=== PATIENT | male | born 1980 | race Caucasian/White ===

== ENCOUNTER 2019-07-16 09:51 | Inpatient (IN) | payer MEDICAID ==
[~2019-07-16] VITALS: Ht 167.6 cm; Wt 77.1 kg
[2019-07-16 09:52] VITALS: BP 118/67
--- NOTE | 2019-07-16 10:00 | NUR ---
PT TO ER BED 6
[2019-07-16] MEDS ORDERED: ONDANSETRON 4 MG/2 ML VIAL IVP ONE (10:10)
[2019-07-16] MEDS ORDERED: MORPHINE SULFATE 4 MG/ML SYR IVP ONE ×2 (10:10→11:00)
[2019-07-16] MEDS ORDERED: NACL 0.9% 1,000 ML IV ONE ×2 (10:10→12:35)
--- NOTE | 2019-07-16 10:22 | NUR ---
PT TO ED WITH C/O LOWER ABD PAIN X 1 DAY. PT REPORTS EPISODES OF BLOOD TINGED VOMIT. PT NOTED TO BE GAURDING LOWER ABD. ABD IS FLAT, TENDER. NO REBOUND TENDERNESS. BOWEL SOUNDS ACTIVE, NO OBVIOUS DISTENTION NOTED. PT PLACED INTO BED FOR MD WHITESIDE.
--- NOTE | 2019-07-16 10:23 | NUR ---
Patient taken to CT via gurney. Warm blanket provided prior to transfer.
[2019-07-16 10:27] LABS: BASOPHILS # (AUTO) 0.2 K/uL (0.00-0.22); BASOPHILS % (AUTO) 1.1 % (0.0-2.0); EOSINOPHILS # (AUTO) 0.1 K/uL (0-0.4); EOSINOPHILS % (AUTO) 0.5 % (0.0-4.0); HEMATOCRIT 48.1 % (36-52); HEMOGLOBIN 17.2 g/dL (12.0-18.0); LYMPHOCYTES # (AUTO) 2.9 K/uL (2.0-11.5); MEAN CORPUSCULAR HEMOGLOBIN 33 pg (27-31); MEAN CORPUSCULAR HGB CONC 36 g/dL (33-37); MEAN CORPUSCULAR VOLUME 91.4 fL (80-94); MONOCYTES # (AUTO) 0.3 K/uL (0.8-1.0); PLATELET COUNT (AUTO) 273 K/uL (140-450); RED BLOOD CELL COUNT(AUTO) 5.27 MIL/uL (4.20-6.10); RED CELL DISTRIBUTION WIDTH 12.6 % (11.6-13.7); WHITE BLOOD COUNT (AUTO) 17.4 K/uL (4.8-10.8)
[2019-07-16 10:35] LABS: APPEARANCE,URINE CLEAR (CLEAR); BILIRUBIN,URINE NEGATIVE (NEGATIVE); BLOOD, URINE NEGATIVE (NEGATIVE); COLOR,URINE YELLOW (YELLOW); LEUKOCYTE ESTERASE ,URINE NEGATIVE (NEGATIVE); NITRITE, URINE NEGATIVE (NEGATIVE); PH,URINE 8.5 (5.0-9.0); UGLUCOSE NEGATIVE (NEGATIVE)
[2019-07-16] MEDS ORDERED: PIPERACILLIN/TAZOBACTAM 3.375 GM in DEXTROSE 5% 50 ML IV ONE (10:35)
[2019-07-16] MEDS ORDERED: PIPERACILLIN/TAZOBACTAM 3.375 GM VIAL IV ONE (10:36)
--- NOTE | 2019-07-16 10:37 | NUR ---
Patient returned from CT and placed back into bed 6.
[2019-07-16 10:39] LABS: BARBITURATE, URINE NEG. ng/ml (NEG <=200); BENZODIAZEPINE, URINE NEG. ng/mL (NEG <=200); CANNABINOID, URINE POS. ng/mL (NEG <=50); COCAINE, URINE POS. ng/mL (NEG <=300); OPIATE, URINE NEG. ng/mL (NEG <=2000); PHENCYCLIDINE SCREEN,URINE NEG. ng/mL (NEG <=25)
[2019-07-16 10:40] LABS: ALBUMIN 4.7 g/dL (3.4-5.0); CREATININE 1.1 mg/dL (0.7-1.3); TOTAL BILIRUBIN 0.7 mg/dL (0.0-1.0)
[2019-07-16 10:44] LABS: ANION GAP 17.8 (8-16); CARBON DIOXIDE 25.1 mmol/L (21-32); POTASSIUM 3.9 mmol/L (3.5-5.1)
--- NOTE | 2019-07-16 10:46 | NUR ---
Lab at bedside.
[2019-07-16 10:49] LABS: RBC,URINE NONE SEEN /HPF (0-5); WBC,URINE 0-5 /HPF (0-5)
[2019-07-16 10:59] LABS: LYMPHOCYTES % (AUTO) 16.7 % (20.5-51.1); NEUTROPHILS % (AUTO) 80.1 % (42.2-75.2)
[2019-07-16 11:00] LABS: MONOCYTES % (AUTO) 1.6 % (1.7-9.3)
--- NOTE | 2019-07-16 11:13 | NUR ---
MEDICATED ORDERED FOR PAIN. WILL CONTINUE TO ASSESS. VS REMAIN STABLE.
[2019-07-16] MEDS ORDERED: ONDANSETRON 4 MG/2 ML VIAL IM/IVP PRN (12:25)
[2019-07-16] MEDS ORDERED: LORazepam 2 MG/ML VIAL IM/IVP PRN (12:25)
[2019-07-16] MEDS ORDERED: DOCUSATE SODIUM 100 MG GELCAP PO PRN (12:25)
[2019-07-16] MEDS ORDERED: ACETAMINOPHEN 325 MG TAB PO PRN (12:25)
--- NOTE | 2019-07-16 12:45 | NUR ---
Patient will be admitted to care of DR HUYNH. Admited to MED SURG. Will go to room 119-A. Belongings list completed. Report to VIKTORIYA.
[2019-07-16 12:55] VITALS: BP 155/98
--- NOTE | 2019-07-16 12:55 | NUR ---
RECEIVED PT FROM ER. PT ARRIVED FROM ER VIA WHEELCHAIR. ABLE TO AMBULATE TO [facility] BED WITH STEADY GAIT. PAIN WITHIN TOLERABLE AT THIS TIME. AAO X4. SKIN INTACT. IV LEFT AC 20G INTACT ON SALINE LOCK. EVEN UNLABORED RESPIRATIONS ON ROOM AIR. ORIENTED PT TO ROOM AND CALL LIGHT. CALL LIGHT WITHIN REACH. SAFETY MEASURES IN PLACE. WILL CONTINUE TO MONITOR.
[2019-07-16 13:02] LABS: BARBITURATE, URINE NEG. ng/ml (NEG <=200); BENZODIAZEPINE, URINE NEG. ng/mL (NEG <=200); CANNABINOID, URINE POS. ng/mL (NEG <=50); COCAINE, URINE POS. ng/mL (NEG <=300); OPIATE, URINE NEG. ng/mL (NEG <=2000); PHENCYCLIDINE SCREEN,URINE NEG. ng/mL (NEG <=25)
[2019-07-16 13:06] LABS: PROTHROMBIN TIME 9.6 secs (10.8-13.4)
[2019-07-16 13:11] LABS: MAGNESIUM 2.1 mg/dL (1.8-2.4); PHOSPHORUS 2.5 mg/dL (2.5-4.9); THYROID STIMULATING HORMONE 0.64 uIU/mL (0.34-3.74)
[2019-07-16] MEDS: KETOROLAC 15 MG/ML VIAL IVP PRN ×2 (14:39→20:36)
[2019-07-16] MEDS: DEXT 5% /NACL 0.9% 1,000 ML IV SCH (14:42)
--- NOTE | 2019-07-16 14:43 | NUR ---
PATIENT COMPLAINS OF PAIN. TORADOL GIVEN AT THIS TIME. HIDA SCAN SCHEDULED AT 1600 PER NM TECH RUKHSANA. WILL KEEP NPO AND NOT GIVE OPIODS UNTIL THEN. 1L BOLUS NS NOT GIVEN IT WAS ER MD ORDER. WILL CONTINUE TO MONITOR.
--- NOTE | 2019-07-16 17:00 | NUR ---
NM TECH AT BEDSIDE TO TAKE PATIENT FOR NM HIDA SCAN OF GALLBLADDER. WILL CONTINUE TO MONITOR.
[2019-07-16] MEDS ORDERED: MORPHINE SULFATE 2 MG/ML SYR ONE (18:06)
--- NOTE | 2019-07-16 18:15 | NUR ---
MORPHINE ADMINISTERED FOR HIDA PROCEDURE PER ORDER. PATIENT TOLERATED WELL.
[2019-07-16] MEDS ORDERED: MORPHINE SULFATE 2 MG/ML SYR IVP SCH (18:30)
--- NOTE | 2019-07-16 18:48 | NUR ---
PATIENT BACK FROM HIDA SCAN. NO DISTRESS NOTED. DINNER TRAY IN FRONT. WILL CONTINUE TO MONITOR.
--- NOTE | 2019-07-16 19:16 | NUR ---
GAVE REPORT TO NIGHT NURSE FOR CONTINUITY OF CARE. PATIENT IN STABLE CONDITION
--- NOTE | 2019-07-16 19:17 | NUR ---
RECEIVED BEDSIDE REPORT FROM FROM DAY SHIFT NURSETRIPP. AAOX4, PT ABLE TO AMBULATE. DENIES PAIN AT THIS TIME. NO S/S OF SOB ON ROOM AIR. SKIN INTACT, WARM AND DRY TO TOUCH. IV LEFT AC 20G INTACT, PATENT, AND ASYMPTOMATIC. BOARD UPDATED, POC DISCUSSED WITH PT. PT VERBALIZED UNDERSTANDING. BED IN LOW POSITION, CALL LIGHT WITHIN REACH. SAFETY MEASURES IN PLACE. WILL CONTINUE TO MONITOR.
--- NOTE | 2019-07-16 20:36 | NUR ---
PT C/O ABD PAIN. GIVEN TORADOL MD ORDERED. PT TOLERATED WELL.
--- NOTE | 2019-07-16 22:35 | NUR ---
PT SLEEPING IN BED. NO ACUTE DISTRESS NOTED. BED IN LOW POSITION, CALL LIGHT WITHIN REACH.
[2019-07-17] VITALS: BP 136/83
--- NOTE | 2019-07-17 00:10 | NUR ---
VS CHECKED, WITHIN PT'S BASELINE. WILL CONTINUE TO MONITOR.
[2019-07-17] MEDS: DEXT 5% /NACL 0.9% 1,000 ML IV SCH ×2 (00:52→13:37)
--- NOTE | 2019-07-17 03:00 | NUR ---
PT SLEEPING IN BED. NO ACUTE DISTRESS NOTED.
[2019-07-17] MEDS ORDERED: metroNIDAZOLE 500 MG/NS PREMIX 100 ML IV SCH ×2 (05:30→13:00)
--- NOTE | 2019-07-17 05:30 | NUR ---
WBC 17.1 NOTED BUT NO ANTIBIOTIC FOR PT. NOTIFIED TO DR. TAVERA. WILL ORDER ANTIBIOTIC.
[2019-07-17] MEDS ORDERED: cefTRIAXone 1,000 MG VIAL ONE (05:45)
--- NOTE | 2019-07-17 05:51 | NUR ---
GIVEN ROCEPHIN MD ORDERED. PT TOLERATED WELL.
--- NOTE | 2019-07-17 06:28 | NUR ---
PT SLEEPING IN BED. NO ACUTE DISTRESS NOTED. GIVEN FLAGYL MD ORDERED. PT TOLERATED WELL.
[2019-07-17 06:33] LABS: ANION GAP 11.9 (8-16); BASOPHILS % (AUTO) 0.2 % (0.0-2.0); CARBON DIOXIDE 27.6 mmol/L (21-32); EOSINOPHILS % (AUTO) 0.2 % (0.0-4.0); HEMOGLOBIN 15.2 g/dL (12.0-18.0); LYMPHOCYTES # (AUTO) 2.9 K/uL (2.0-11.5); LYMPHOCYTES % (AUTO) 22.4 % (20.5-51.1); MEAN CORPUSCULAR HEMOGLOBIN 32 pg (27-31); MEAN CORPUSCULAR HGB CONC 35 g/dL (33-37); MEAN CORPUSCULAR VOLUME 92.6 fL (80-94); MONOCYTES # (AUTO) 1.4 K/uL (0.8-1.0); MONOCYTES % (AUTO) 10.6 % (1.7-9.3); NEUTROPHILS # (AUTO) 8.5 K/uL (1.8-7.7); NEUTROPHILS % (AUTO) 66.6 % (42.2-75.2); PLATELET COUNT (AUTO) 215 K/uL (140-450); POTASSIUM 3.5 mmol/L (3.5-5.1); RED BLOOD CELL COUNT(AUTO) 4.75 MIL/uL (4.20-6.10); RED CELL DISTRIBUTION WIDTH 12.5 % (11.6-13.7); WHITE BLOOD COUNT (AUTO) 12.8 K/uL (4.8-10.8)
[2019-07-17 06:34] LABS: CHOL/HDL RATIO 4.6 (1-4.5)
--- NOTE | 2019-07-17 07:18 | NUR ---
RECEIVED BEDSIDE REPORT FROM MOLDED RUBBER GOODS CUTTER NURSE JEANNETTE. PT IS AWAKE AND ALERT, NO S/S OF ACUTE DISTRESS NOTED, NO C/O PAIN AT THIS TIME. PT IS ON ROOM AIR, SKIN IS INTACT. IV SITE IS IN THE L AC 20 G, INFUSING D5 1/2 NS 80 ML/HR. PT IS NPO FOR EGD PROCEDURE TODAY, CONSENT HAS BEEN SIGNED. PT IS AMBULATORY, ABLE TO MAKE NEEDS KNOWN. CALL LIGHT IS WITHIN REACH. WILL CONTINUE TO MONITOR.
[2019-07-17 08:00] VITALS: BP 117/69
[2019-07-17] MEDS ORDERED: PANTOPRAZOLE 40 MG INJ VIAL IVP SCH (09:00)
[2019-07-17] MEDS: KETOROLAC 15 MG/ML VIAL IVP PRN (09:28)
--- NOTE | 2019-07-17 09:30 | NUR ---
ORDERED AM PROTONIX IV ADMINISTERED; PT ALSO C/O 04/10 ABD PAIN AND A HEADACHE. IV TORADOL ADMINISTERED NEEDED.
--- NOTE | 2019-07-17 10:00 | NUR ---
PT RESTING COMFORTABLY IN THE BED, NO S/S OF ACUTE DISTRESS. CONTINUING TO MONITOR.
[2019-07-17] MEDS ORDERED: fentaNYL 0.05 MG/ML VIAL ONE (12:01)
[2019-07-17] MEDS ORDERED: MIDAZOLAM 2 MG/2 ML VIAL ONE ×2 (12:01)
--- NOTE | 2019-07-17 12:17 | NUR ---
PT TAKEN OFF UNIT FOR EGD
--- NOTE | 2019-07-17 12:50 | NUR ---
PT BACK ON UNIT FROM EGD. VS UPON RETURN: BP 100/51, HR 81, O2 95%, TEMP 98.0, RR 16.
[2019-07-17] MEDS ORDERED: fentaNYL 0.05 MG/ML VIAL IVP SCH (13:00)
[2019-07-17] MEDS ORDERED: MIDAZOLAM 2 MG/2 ML VIAL IVP SCH (13:00)
--- NOTE | 2019-07-17 16:00 | NUR ---
PT HAS LEFT AMA AFTER BEING INSTRUCTED BY MD AND NURSE THAT IT IS IMPORTANT FOR HIM TO STAY OVERNIGHT TO BE MONITORED AFTER HIS EGD. PT DOES NOT WANT TO STAY UNLESS THERE IS A CERTAIN SURGERY FOR HIS GALLBLADDER. IV SITE AND WRIST BANDS WERE REMOVED. PT LEFT WITH HIS FAMILY. Addendum: 07/17/19 at 1945 by Cornelia Rowell RN [facility] ID: [id number]
[2019-07-18] MEDS ORDERED: [UNRECOGNIZED DRUG - CODE] PO (21:34)
== END 2019-07-17 16:00 | disposition left against medical advice (07) | DRG 241 ==
LOC: MED 09:51 → MTU 12:32
PROVIDERS: ADMIT General Practice; ATTEND General Practice
PROC: 0DB48ZX Excision of Esophagogastric Junction, Via Natural or Artificial Opening Endoscopic, Diagnostic (ICD-10-PCS; 2019-07-17)
PROC: 0DB68ZX Excision of Stomach, Via Natural or Artificial Opening Endoscopic, Diagnostic (ICD-10-PCS; principal; 2019-07-17 12:30)
DX: K29.20 Alcoholic gastritis without bleeding (principal); K65.9 Peritonitis, unspecified; K80.12 Calculus of gallbladder with acute and chronic cholecystitis without obstruction; K76.0 Fatty (change of) liver, not elsewhere classified; K21.9 Gastro-esophageal reflux disease without esophagitis; F14.90 Cocaine use, unspecified, uncomplicated; F12.90 Cannabis use, unspecified, uncomplicated; F19.10 Other psychoactive substance abuse, uncomplicated; K76.9 Liver disease, unspecified; Z53.21 Procedure and treatment not carried out due to patient leaving prior to being seen by health care provider; F10.10 Alcohol abuse, uncomplicated; Y90.9 Presence of alcohol in blood, level not specified
CPT/HCPCS: 36415; 76705; 78445; 80048; 80053; 80305; 81001; 83036; 83605; 83690; 83735; 84100; 84443; 85025; 85610; 85730; 86677; 87040; 87081; 87086; 96365; 96375; 96376; 99285; A9510; C9113; J0696; J1885; J2250; J2270; J2405; J2543; J3010; J3490; J7030; J7042; J7060; Q0092

== ENCOUNTER 2019-07-18 17:02 | Inpatient (IN) | payer MEDICAID ==
[2019-07-18] VITALS: BP 127/63
[~2019-07-18] VITALS: Ht 167.6 cm; Wt 79.4 kg
[2019-07-18 17:05] VITALS: BP 127/68
--- NOTE | 2019-07-18 17:07 | NUR ---
ISAIAH BAKER. TO LOBBY, MUNIR.
--- NOTE | 2019-07-18 17:25 | NUR ---
39/M BIB SELF C/O RLQ ABD PAIN & DIARRHEA X 3 DAYS. DENIES N/V. HX-GALLSTONES. ABD : BLOATED. PATIENT STATES PAIN OF 10/10 AT THIS TIME.PATIENT POSITIONED FOR COMFORT; HOB ELEVATED; BEDRAILS UP X1; BED DOWN. ER MD MADE AWARE OF PT STATUS.
--- NOTE | 2019-07-18 18:12 | NUR ---
Patient being evaluated by DR PATTON at bedside.
[2019-07-18] MEDS ORDERED: NACL 0.9% 1,000 ML IV SCH (18:28)
[2019-07-18] MEDS ORDERED: MORPHINE SULFATE 4 MG/ML SYR IVP ONE ×2 (18:30→20:15)
--- NOTE | 2019-07-18 19:10 | NUR ---
Pt report given to ALEA RN. Transfer of care at this time.
[2019-07-18 19:40] LABS: BASOPHILS # (AUTO) 0.1 K/uL (0.00-0.22); BASOPHILS % (AUTO) 0.5 % (0.0-2.0); EOSINOPHILS # (AUTO) 0.1 K/uL (0-0.4); EOSINOPHILS % (AUTO) 0.9 % (0.0-4.0); HEMOGLOBIN 14.3 g/dL (12.0-18.0); LYMPHOCYTES # (AUTO) 3.4 K/uL (2.0-11.5); LYMPHOCYTES % (AUTO) 28.5 % (20.5-51.1); MEAN CORPUSCULAR HEMOGLOBIN 33 pg (27-31); MEAN CORPUSCULAR HGB CONC 35 g/dL (33-37); MEAN CORPUSCULAR VOLUME 93.1 fL (80-94); MONOCYTES # (AUTO) 1.4 K/uL (0.8-1.0); MONOCYTES % (AUTO) 11.4 % (1.7-9.3); NEUTROPHILS # (AUTO) 7.1 K/uL (1.8-7.7); NEUTROPHILS % (AUTO) 58.7 % (42.2-75.2); PLATELET COUNT (AUTO) 214 K/uL (140-450); RED BLOOD CELL COUNT(AUTO) 4.41 MIL/uL (4.20-6.10); RED CELL DISTRIBUTION WIDTH 12.4 % (11.6-13.7)
[2019-07-18 19:47] LABS: CARBON DIOXIDE 26.2 mmol/L (21-32); POTASSIUM 3.2 mmol/L (3.5-5.1)
[2019-07-18 19:53] LABS: ALBUMIN 3.3 g/dL (3.4-5.0); TOTAL BILIRUBIN 0.5 mg/dL (0.0-1.0)
[2019-07-18] MEDS ORDERED: ONDANSETRON 4 MG/2 ML VIAL IVP ONE (20:15)
[2019-07-18] MEDS ORDERED: KETOROLAC 30 MG/ML VIAL IVP ONE (20:15)
--- NOTE | 2019-07-18 20:34 | NUR ---
PATIENT RATES PAIN OF 10/10 ON RIGHT ABDOMEN. NOTIFIED .
--- NOTE | 2019-07-18 20:42 | NUR ---
Dr. Harden and Dr. Corbett at bedside.
[2019-07-18] MEDS ORDERED: ACETAMINOPHEN 325 MG TAB PO PRN (20:55)
[2019-07-18] MEDS ORDERED: ONDANSETRON 4 MG/2 ML VIAL IVP PRN (20:55)
[2019-07-18 21:15] LABS: PROTHROMBIN TIME 9.4 secs (10.8-13.4)
--- NOTE | 2019-07-18 21:15 | NUR ---
Patient will be admitted to care of DR. HUYNH. Admited to Med/Surg. Will go to room 125 B. Belongings list completed. Report to YAKELIN HALEY.
[2019-07-18 21:16] LABS: MAGNESIUM 2.2 mg/dL (1.8-2.4); PHOSPHORUS 2.6 mg/dL (2.5-4.9)
--- NOTE | 2019-07-18 21:20 | NUR ---
ADMITTED THIS 39 YEAR OLD MALE FROM PER ER PER WHEELCHAIR COMPLAINING OF ABDOMINAL PAIN X5 DAYS, AMBULATORY TO BED WITH STEADY GAIT, ASSESSMENT DONE, VITAL SIGNS STABLE, 6/10 PAIN LEVEL AT THIS TIME, WILL MEDICATE PRN, INSTRUCTED NPO AFTER MIDNIGHT FOR PLANNED SURGERY TOMORROW, VERBALIZED UNDERSTANDING, SAFETY MEASURES IN PLACE, CALL LIGHT WITHIN REACH.
[2019-07-18] MEDS: DOCUSATE SODIUM 100 MG GELCAP PO SCH (21:33)
[2019-07-18] MEDS ORDERED: [UNRECOGNIZED DRUG - CODE] PO (21:34)
[2019-07-18] MEDS ORDERED: POTASSIUM CHLORIDE 10 MEQ TABER PO SCH (22:00)
[2019-07-18 22:20] LABS: APPEARANCE,URINE CLEAR (CLEAR); BILIRUBIN,URINE NEGATIVE (NEGATIVE); BLOOD, URINE NEGATIVE (NEGATIVE); COLOR,URINE AMBER (YELLOW); LEUKOCYTE ESTERASE ,URINE NEGATIVE (NEGATIVE); NITRITE, URINE NEGATIVE (NEGATIVE); PH,URINE 6.5 (5.0-9.0); UGLUCOSE 1+ (NEGATIVE)
[2019-07-18 22:24] LABS: BARBITURATE, URINE NEG. ng/ml (NEG <=200); BENZODIAZEPINE, URINE POS. ng/mL (NEG <=200); CANNABINOID, URINE POS. ng/mL (NEG <=50); COCAINE, URINE NEG. ng/mL (NEG <=300); OPIATE, URINE NEG. ng/mL (NEG <=2000); PHENCYCLIDINE SCREEN,URINE NEG. ng/mL (NEG <=25)
[2019-07-18 22:34] LABS: RBC,URINE 0-5 /HPF (0-5); WBC,URINE 0-5 /HPF (0-5)
[2019-07-18] MEDS: DEXT 5% /NACL 0.9% 1,000 ML IV SCH (22:53)
[2019-07-18] MEDS: HYDROcodone/APAP 7.5/325 MG 1 TAB PO PRN (22:58)
--- NOTE | 2019-07-18 23:00 | NUR ---
PT BACK FROM CT DEPT, IVF OF D5NS AT 100ML/H STARTED, DUE K-DUR PO GIVEN, TOLERATED ALL, ALL NEEDS ATTENDED.
[2019-07-19] VITALS: BP 127/63
--- NOTE | 2019-07-19 | NUR ---
PT SLEEPING, EASILY AROUSABLE, VITAL SIGNS STABLE, DENIES ANY PAIN, AWARE OF NPO AFTER MIDNIGHT, IVF INFUSING WELL, CONTINUE TO MONITOR CLOSELY.
--- NOTE | 2019-07-19 03:40 | NUR ---
ROUNDS MADE, SEEN PT SLEEPING, VISIBLE CHEST RISE AND NO FALL, NO SIGNS OF PAIN, IVF INFUSING WELL, MONITORED CLOSELY.
--- NOTE | 2019-07-19 05:30 | NUR ---
PT SLEEPING, EASILY AROUSABLE, DENIES ANY PAIN, PT SIGNED CONSENT FOR BLOOD TRANSFUSION, PT AMBULATED TO BR WITH STEADY GAIT AND VOIDED FREELY, MAINTAINED ON NPO.
--- NOTE | 2019-07-19 07:25 | NUR ---
PT AWAKE, NO SIGNS OF DISTRESS, BEDSIDE REPORT GIVEN TO YAKELIN ALMAGUER FOR CONTINUITY OF CARE.
--- NOTE | 2019-07-19 07:26 | NUR ---
RECEIVED PATIENT FROM NIGHT NURSE. AAOX4. SKIN INTACT. PATIENT DENIES PAIN AND IS IN NO DISTRESS. BED IN LOW POSITION. IV IN PLACE R FA 20G INFUSING D5 NS AT 100ML. SAFETY MEASURES IN PLACE. CALL LIGHT WITHIN REACH. WILL CONTINUE TO MONITOR.
[2019-07-19] MEDS ORDERED: BUPIVACAINE-MPF/EPI 0.5% 30 ML VIAL INJ ONE (07:51)
--- NOTE | 2019-07-19 07:55 | NUR ---
PT VITAL SIGNS TAKEN PRIOR TO TRANSPORT TO OR. PATIENT DENIES PRE PROCEDURE ANXIETY.
[2019-07-19] MEDS ORDERED: ceFAZolin 1,000 MG VIAL ONE (07:59)
[2019-07-19 08:00] VITALS: BP 120/70
--- NOTE | 2019-07-19 08:01 | NUR ---
PATIENT HAS BEEN SCREENED AND CATEGORIZED LOW NUTRITION RISK. PATIENT WILL BE SEEN WITHIN 7 DAYS OF ADMISSION. 07/25/[address]
--- NOTE | 2019-07-19 08:05 | NUR ---
OR NURSES ON UNIT TO TAKE PATIENT FOR LAP JOHN. WILL CONTINUE TO MONITOR WHEN PATIENT RETURNS ON UNIT
[2019-07-19] MEDS ORDERED: MIDAZOLAM 2 MG/2 ML VIAL ONE (08:08)
[2019-07-19] MEDS ORDERED: fentaNYL 0.05 MG/ML VIAL ONE (08:08)
[2019-07-19] MEDS ORDERED: MEPERIDINE 50 MG/ML SYR ONE (08:09)
[2019-07-19] MEDS ORDERED: DEXAMETHASONE 4 MG/ML VIAL ONE (08:25)
[2019-07-19] MEDS ORDERED: ONDANSETRON 4 MG/2 ML VIAL ONE (08:25)
[2019-07-19] MEDS ORDERED: KETOROLAC 30 MG/ML VIAL ONE (08:25)
[2019-07-19] MEDS ORDERED: ROCURONIUM 50 MG/5 ML VIAL IV ONE (08:25)
[2019-07-19] MEDS ORDERED: SUCCINYLCHOLINE CHLORIDE 200 MG/10 ML VIAL IVP ONE (08:25)
[2019-07-19] MEDS ORDERED: PROPOFOL 200 MG/20 ML VIAL IV ONE (08:25)
[2019-07-19] MEDS ORDERED: SEVOFLURANE 250 ML BTL INH ONE (08:25)
[2019-07-19] MEDS: DOCUSATE SODIUM 100 MG GELCAP PO SCH ×2 (09:00→21:28)
[2019-07-19] MEDS: PANTOPRAZOLE 40 MG TABEC PO SCH (09:00)
[2019-07-19] MEDS: LACTATED RINGERS 1,000 ML IV SCH ×2 (09:04→17:24)
[2019-07-19] MEDS ORDERED: HYDROmorphone 1 MG/ML AMP IVP PRN (09:05)
[2019-07-19] MEDS ORDERED: ONDANSETRON 4 MG/2 ML VIAL IVP PRN (09:05)
[2019-07-19] MEDS ORDERED: MEPERIDINE 25 MG/ML SYR IVP PRN (09:05)
[2019-07-19] MEDS ORDERED: diphenhydrAMINE 50 MG/ML VIAL IVP PRN (09:05)
[2019-07-19] MEDS ORDERED: HYDROmorphone PFS 2 MG/ML SYR ONE (10:29)
--- NOTE | 2019-07-19 10:50 | NUR ---
PT BACK ON FLOOR AFTER SURGERY. STATUS POST LAP JOHN. VITAL SIGNS WITHIN NORMAL LIMITS. ABDOMINAL DRESSINGS DRY AND INTACT. SAFETY MEASURES IN PLACE. WILL CONTINUE TO MONITOR.
[2019-07-19] MEDS: PIPERACILLIN/TAZOBACTAM 3.375 GM in DEXTROSE 5% 50 ML IV SCH ×2 (11:20→17:15)
[2019-07-19] MEDS: DEXT 5% /NACL 0.9% 1,000 ML IV SCH ×2 (11:22→18:01)
--- NOTE | 2019-07-19 11:36 | NUR ---
MEDICATIONS ADMINISTERED PER ORDER. PT TOLERATED WELL AND IS IN NO DISTRESS. ACCOMPANIED BY FAMILY MEMBERS. SAFETY MEASURES IN PLACE. WILL CONTINUE TO MONITOR.
[2019-07-19] MEDS ORDERED: SIMETHICONE 80 MG TAB.CHEW PO PRN (13:05)
[2019-07-19 13:40] LABS: BASOPHILS % (AUTO) 0.2 % (0.0-2.0); HEMATOCRIT 40.7 % (36-52); LYMPHOCYTES # (AUTO) 0.6 K/uL (2.0-11.5); LYMPHOCYTES % (AUTO) 7.6 % (20.5-51.1); MEAN CORPUSCULAR HEMOGLOBIN 32 pg (27-31); MEAN CORPUSCULAR HGB CONC 34 g/dL (33-37); MEAN CORPUSCULAR VOLUME 93.9 fL (80-94); MONOCYTES # (AUTO) 0.1 K/uL (0.8-1.0); MONOCYTES % (AUTO) 1.7 % (1.7-9.3); NEUTROPHILS # (AUTO) 7.4 K/uL (1.8-7.7); NEUTROPHILS % (AUTO) 90.5 % (42.2-75.2); PLATELET COUNT (AUTO) 215 K/uL (140-450); RED BLOOD CELL COUNT(AUTO) 4.33 MIL/uL (4.20-6.10); RED CELL DISTRIBUTION WIDTH 12.9 % (11.6-13.7); WHITE BLOOD COUNT (AUTO) 8.2 K/uL (4.8-10.8)
[2019-07-19 13:55] LABS: ANION GAP 12.4 (8-16); CREATININE 0.9 mg/dL (0.7-1.3); POTASSIUM 4.4 mmol/L (3.5-5.1)
[2019-07-19 14:00] LABS: MAGNESIUM 1.9 mg/dL (1.8-2.4); PHOSPHORUS 2.6 mg/dL (2.5-4.9)
--- NOTE | 2019-07-19 14:30 | NUR ---
ASSISTED PT IN GOING TO THE BATHROOM. PT LEFT IN BED, LOW POSITION WITH IV INFUSING PER ORDER. SAFETY MEASURES IN PLACE. WILL CONTINUE TO MONITOR.
[2019-07-19 16:00] VITALS: BP 125/71
--- NOTE | 2019-07-19 17:17 | NUR ---
MEDICATIONS ADMINISTERED PER ORDER. PT AWAKE TALKING TO FAMILY MEMBERS. REPORTS NO PAIN. SAFETY MEASURES IN PLACE. WILL CONTINUE TO MONITOR.
[2019-07-19] MEDS: HYDROcodone/APAP 7.5/325 MG 1 TAB PO PRN (17:51)
--- NOTE | 2019-07-19 17:56 | NUR ---
ADMINISTERED PRN NORCO FOR PAIN. PATIENT IN BED IN THE COMPANY OF HIS FAMILY. SAFETY MEASURES IN PLACE. WILL CONTINUE TO MONITOR.
--- NOTE | 2019-07-19 19:15 | NUR ---
RECEIVED BEDSIDE REPORT FROM DAY SHIFT NURSE. PATIENT IS AWAKE, ALERT, AND COOPERATIVE. RESPIRATION EVEN UNLABORED ON ROOM AIR. S/P LAP JOHN 4 ABDOMINAL INCISION NOTED DRESSING DRY AND INTACT. IV PATENT AND INTACT. PLAN OF CARE WAS DISCUSSED. BED IS AT LOW POSITION. CALL LIGHT WITHIN REACH AND VERBALIZE ITS USE. WILL CONTINUE TO MONITOR.
--- NOTE | 2019-07-19 19:17 | NUR ---
BEDSIDE REPORT GIVEN TO NIGHT NURSE FOR CONTINUITY OF CARE. PT IN NO DISTRESS.
--- NOTE | 2019-07-19 20:00 | NUR ---
INITIAL ASSESSMENT DONE. VITALS WERE TAKEN. MINIMAL DRAINAGE NOTED FORM THE INCISION. WILL CONTINUE TO MONITOR.
--- NOTE | 2019-07-19 21:00 | NUR ---
ALL SCHEDULED MEDS WERE GIVEN PER ORDER. NO ASE NOTED. WILL CONTINUE TO MONITOR.
--- NOTE | 2019-07-19 22:00 | NUR ---
PATIENT IS WALKING AROUND THE NURSING STATION. NO DISTRESS NOTED. WILL CONTINUE TO MONITOR.
[2019-07-20] VITALS: BP 133/90
--- NOTE | 2019-07-20 | NUR ---
VITALS WERE TAKEN. PATIENT COMPLAINED OF ABDOMINAL PAIN AND GASSY. PRN PAIN AND GAS ADMINISTERED PER ORDER. WILL CONTINUE TO MONITOR.
[2019-07-20] MEDS: PIPERACILLIN/TAZOBACTAM 3.375 GM in DEXTROSE 5% 50 ML IV SCH ×3 (00:01→12:29)
[2019-07-20] MEDS: HYDROcodone/APAP 7.5/325 MG 1 TAB PO PRN ×2 (00:01→09:47)
--- NOTE | 2019-07-20 01:00 | NUR ---
PATIENT IV INFILTRATED. NO ACTIVE BLEEDING NOTED. CANNULA TIP INTACT. INSERTED NEW ONE RIGHT FOREARM 22G. WILL CONTINUE TO MONITOR.
[2019-07-20] MEDS: LACTATED RINGERS 1,000 ML IV SCH (01:44)
--- NOTE | 2019-07-20 02:00 | NUR ---
CHECKED PATIENT. PATIENT SLEEPING RESPIRATION EVEN UNLABORED ON ROOM AIR. NO DISTRESS NOTED. WILL CONTINUE TO MONITOR.
[2019-07-20] MEDS: DEXT 5% /NACL 0.9% 1,000 ML IV SCH ×2 (04:17→12:30)
--- NOTE | 2019-07-20 04:52 | NUR ---
CHECKED PATIENT. PATIENT SLEEPING RESPIRATION EVEN UNLABORED ON ROOM AIR. NO DISTRESS NOTED. WILL CONTINUE TO MONITOR.
[2019-07-20 06:51] LABS: ALBUMIN 2.7 g/dL (3.4-5.0); ANION GAP 11.8 (8-16); CARBON DIOXIDE 27.9 mmol/L (21-32); CREATININE 0.9 mg/dL (0.7-1.3); POTASSIUM 3.7 mmol/L (3.5-5.1); TOTAL BILIRUBIN 0.4 mg/dL (0.0-1.0)
[2019-07-20 07:05] LABS: PHOSPHORUS 4.2 mg/dL (2.5-4.9)
[2019-07-20 07:07] LABS: BASOPHILS % (AUTO) 0.3 % (0.0-2.0); EOSINOPHILS % (AUTO) 0.2 % (0.0-4.0); HEMATOCRIT 36.6 % (36-52); HEMOGLOBIN 12.7 g/dL (12.0-18.0); LYMPHOCYTES # (AUTO) 2.6 K/uL (2.0-11.5); LYMPHOCYTES % (AUTO) 28.8 % (20.5-51.1); MEAN CORPUSCULAR HEMOGLOBIN 32 pg (27-31); MEAN CORPUSCULAR HGB CONC 35 g/dL (33-37); MEAN CORPUSCULAR VOLUME 92.8 fL (80-94); MONOCYTES # (AUTO) 0.6 K/uL (0.8-1.0); MONOCYTES % (AUTO) 6.3 % (1.7-9.3); NEUTROPHILS # (AUTO) 5.8 K/uL (1.8-7.7); NEUTROPHILS % (AUTO) 64.4 % (42.2-75.2); PLATELET COUNT (AUTO) 206 K/uL (140-450); RED BLOOD CELL COUNT(AUTO) 3.94 MIL/uL (4.20-6.10); RED CELL DISTRIBUTION WIDTH 12.4 % (11.6-13.7)
--- NOTE | 2019-07-20 07:20 | NUR ---
ENDORSED PATIENT TO DAY SHIFT NURSE. PATIENT IN STABLE CONDITION.
[2019-07-20 08:00] VITALS: BP 120/76
[2019-07-20] MEDS: PANTOPRAZOLE 40 MG TABEC PO SCH (09:38)
[2019-07-20] MEDS: DOCUSATE SODIUM 100 MG GELCAP PO SCH (09:38)
[2019-07-20] MEDS ORDERED: DOCU-299 PO (10:37)
[2019-07-20] MEDS ORDERED: LACT10CA1 PO (10:37)
[2019-07-20] MEDS ORDERED: HYDR-5122 PO (10:37)
[2019-07-20] MEDS ORDERED: AMOX-1000 PO (10:37)
--- NOTE | 2019-07-20 12:00 | NUR ---
PT WAS SEEN AMBULATING IN THE HALLWAY, ACCOMPANIED BY ,NO SOB NOTED. WILL MONITOR PT,.
--- NOTE | 2019-07-20 12:30 | NUR ---
PT IS AWAKE WITH BEDSIDE, IV ZOSYN WAS GIVEN TO PT NOW. WILL MONITOR PT.
--- NOTE | 2019-07-20 13:04 | NUR ---
RECEIVED PT FROM NUCLEAR DESIGN ENGINEER NURSECOURTNEY, PT IS AWAKE AND LYING ON THE BED, S/P EXPLORE LAP, IV LINE ON THE RT FA G. 22 WITH D5NS INFUSING AT 100ML/HR,SIDE RAILS ARE UP AND CALL LIGHT WITHIN REACH, [address], DRESSING INTACT, MINIMAL DRAINAGE NOTED ON THE DRESSING ON THE MID-ABDOMEN, PT DENIES PAIN AND NO SIGN OF DISTRESS NOTED. WILL MONITOR PT.
--- NOTE | 2019-07-20 14:55 | NUR ---
SURGICAL WOUND INCISION WAS DONE TO PT AND PICTURE WAS TAKEN AND ATTACHED TO CHART.
--- NOTE | 2019-07-20 15:20 | NUR ---
DISCHARGED PT VIA WHEELCHAIR WITH AND SON, DISCHARGED INSTRUCTIONS AND TEACHINGS GIVEN TO PT AND VERBALIZED UNDERSTANDING, IV AND ARM BAND REMOVED AND PT IS STABLE AT THIS TIME.
== END 2019-07-20 15:20 | disposition home or self-care (01) | DRG 263 ==
LOC: MED 17:02 → MMU 20:53
PROVIDERS: ADMIT General Practice; ATTEND General Practice
PROC: 0FT44ZZ Resection of Gallbladder, Percutaneous Endoscopic Approach (ICD-10-PCS; principal; 2019-07-19 08:00)
DX: K81.0 Acute cholecystitis (principal); E44.1 Mild protein-calorie malnutrition; E73.9 Lactose intolerance, unspecified; E87.6 Hypokalemia; K29.70 Gastritis, unspecified, without bleeding; F17.210 Nicotine dependence, cigarettes, uncomplicated; F12.90 Cannabis use, unspecified, uncomplicated; Z83.3 Family history of diabetes mellitus; F19.10 Other psychoactive substance abuse, uncomplicated; Z68.28 Body mass index [BMI] 28.0-28.9, adult; K82.8 Other specified diseases of gallbladder
CPT/HCPCS: 36415; 80048; 80053; 80305; 81001; 82374; 83690; 83735; 84100; 85025; 85610; 85730; 86886; 86900; 86901; 87040; 87081; 88304; 96374; 96375; 96376; 99285; J0330; J0690; J1100; J1170; J1885; J2175; J2250; J2270; J2405; J2543; J2704; J3010; J3490; J7030; J7042; J7060

== ENCOUNTER 2020-12-16 11:38 | Emergency (ER) | payer SELFPAY ==
[~2020-12-16] VITALS: Ht 167.6 cm; Wt 77.1 kg
[~2020-12-16 11:38] MED LIST: AMOX-1000 PO; DOCU-299 PO; HYDR-5122 PO; LACT10CA1 PO; [UNRECOGNIZED DRUG - CODE] PO
[2020-12-16 11:43] VITALS: BP 144/88
--- NOTE | 2020-12-16 11:59 | NUR ---
40 YEAR OLD MALE COMPLAINS OF THROAT PAIN X YESTERDAY. PATIENT VERBALIZED DRINKING FROM A GLASS LAST NIGHT AND BELIEVES HE MIGHT HAVE SWALLOWED A FINE PIECE OF GLASS. PAIN 10/10, RIGHT SIDE OF THROAT, INTERMITTENT, SHARP. PATIENT VERBALIZED ABNORMAL BLOOD PRESENCE IN SPIT WHEN BRUSHING HIS TEETH THIS MORNING. DENIES SOB. CLEAR LUNG SOUNDS HEARD THROUGHOUT. CLEAR BREATH SOUNDS AT TRACHEA. EXPERIENCING DIFFICULTY SPEAKING AND COUGHING. AO4, BREATHING EVEN AND UNLABORED, SKIN WARM AND DRY. BED IN LOWEST POSITION, LOCKED, X1 SIDERAIL UP. PMH - CHOLECYSTECTOMY NKA, LACTOSE INTOLERANT
[2020-12-16] MEDS ORDERED: LIDOCAINE VISCOUS 2% 20 ML UDC PO ONE (12:10)
[2020-12-16] MEDS ORDERED: KETOROLAC 30 MG/ML VIAL IM ONE (13:25)
[2020-12-16 14:49] VITALS: BP 141/82
--- NOTE | 2020-12-16 14:50 | NUR ---
Patient discharged with v/s stable. Written and verbal after care instructions given and explained. Patient alert, oriented and verbalized understanding of instructions. Ambulatory with steady gait. All questions addressed prior to discharge. ID band removed. Patient advised to follow up with PMD. Rx of NORCO, NAPROSYN given. Patient educated on indication of medication including possible reaction and side effects. Opportunity to ask questions provided and answered.
== END 2020-12-16 14:50 | disposition home or self-care (01) ==
LOC: MED 11:38
DX: F45.8 Other somatoform disorders (principal); J02.9 Acute pharyngitis, unspecified; F17.200 Nicotine dependence, unspecified, uncomplicated; Z91.018 Allergy to other foods; Z79.899 Other long term (current) drug therapy
CPT/HCPCS: 70360; 70490; 96372; 99284; J1885